=== PATIENT | male | born 1990 | race Caucasian/White ===

== ENCOUNTER → 2020-05-05 | Outpatient (CLI) | payer OTHER ==
--- NOTE | 2020-05-05 15:04 | MR ---
EXAMINATION TYPE: MR knee RT wo con DATE OF EXAM: 05/05/2020 COMPARISON: Outside right knee x-ray 2 weeks ago HISTORY: Right knee pain per order. In her knee pain with locking and swelling for 10 years per patie nt. History of prior surgery. TECHNIQUE: Multiplanar, multisequence images of the knee is performed without IV contrast. FINDINGS: MEDIAL MENISCUS: Minimal medial meniscus remains present at the level of the posterior horn sagittal images 7 through 9 with increased signal and peripheral irregularity consistent with surgical resecti on and/or tearing. LATERAL MENISCUS: Anterior horn is intact without tear. Central body and posterior horn truncated wit h abnormal signal consistent with tear. Lateral extrusion noted on images. CRUCIATE LIGAMENTS: The posterior cruciate ligament is intact. Anterior cruciate ligament is complete ly torn with double PCL sign noted. COLLATERAL LIGAMENTS: The medial collateral ligament and lateral collateral ligament complex are inta ct and unremarkable. EXTENSOR MECHANISM: Visualized quadriceps and patellar tendons are intact. EFFUSION: Small suprapatellar joint effusion. POPLITEAL CYST: Small popliteal/perez cyst with loose bodies sagittal image 9. TRICOMPARTMENT SPACES: Moderate to severe narrowing and spurring medial and lateral tibiofemoral com partments . Patellofemoral compartment shows mild narrowing and spurring. CARTILAGE: Severe full-thickness cartilaginous loss medial tibiofemoral compartment. BONE MARROW SIGNAL: Subchondral cystic change posterior aspect of the tibial plateau. OTHER: Corresponding to x-ray there are multiple loose bodies present, one is seen anterior to the me dial aspect of the distal femur in Hoffa's fat pad additional smaller loose bodies are seen along the posterior aspect of the distal femur. IMPRESSION: 1. Prior resection of majority of medial meniscus, tearing through the remnant posterior horn is note d. 2. Complete ACL tear. 3. Severe medial tibiofemoral compartment degenerative change. 4. Full-thickness tear through the posterior horn and central body of the lateral meniscus. 5. Small popliteal cyst with loose bodies. 6. Scattered ossific loose bodies in the knee joint.
== END | disposition home or self-care (01) ==
LOC: RADMRIMAIN 13:39
PROVIDERS: ATTEND Orthopaedic Surgery
DX: S83.511A Sprain of anterior cruciate ligament of right knee, initial encounter (principal); S83.281A Other tear of lateral meniscus, current injury, right knee, initial encounter; S83.241A Other tear of medial meniscus, current injury, right knee, initial encounter; M17.11 Unilateral primary osteoarthritis, right knee; M71.21 Synovial cyst of popliteal space [Baker], right knee; Z98.890 Other specified postprocedural states

== ENCOUNTER → 2020-05-27 | Outpatient (CLI) | payer OTHER ==
[2020-05-27 14:47] LABS: Basophils % (A) 0 %; Eosinophils # (A) 0.1 k/uL (0-0.7); Eosinophils % (A) 1 %; HCT 47.2 % (39.0-53.0); HGB 15.5 gm/dL (13.0-17.5); Lymphocytes # (A) 1.4 k/uL (1.0-4.8); Lymphocytes % (A) 18 %; MCH 29.3 pg (25.0-35.0); MCHC 32.9 g/dL (31.0-37.0); MCV 89.2 fL (80.0-100.0); Monocytes # (A) 0.5 k/uL (0-1.0); Monocytes % (A) 6 %; Neutrophils # (A) 5.4 k/uL (1.3-7.7); Neutrophils % (A) 70 %; Platelet Count 214 k/uL (150-450); RBC 5.29 m/uL (4.30-5.90); RDW 12.2 % (11.5-15.5); WBC 7.8 k/uL (3.8-10.6)
[2020-05-27 14:50] LABS: Potassium 5.5 mmol/L (3.5-5.1)
== END | disposition home or self-care (01) ==
LOC: LABPAT 13:35
PROVIDERS: ATTEND Orthopaedic Surgery
DX: Z01.818 Encounter for other preprocedural examination (principal); M23.91 Unspecified internal derangement of right knee
CPT/HCPCS: 36415; 80051; 85025

== ENCOUNTER 2020-06-10 09:00 | Day surgery (SDC) | payer OTHER ==
[2020-06-09 10:49] VITALS: BMI 28.1
--- NOTE | 2020-06-09 19:37 | HP ---
HISTORY AND PHYSICAL DATE OF SURGERY: 06/10/2020 Dwight Light is a 29-year-old patient seen with progressive right knee pain. We discussed options. He elected to proceed with right knee arthroscopy. Consent was obtained. PAST MEDICAL HISTORY: Noncontributory. PAST SURGICAL HISTORY: Right knee arthroscopy with ACL reconstruction, wrist surgery. DAILY MEDICATIONS: None. ALLERGIES: NONE REPORTED. SOCIAL HISTORY: He smokes cigarettes daily. PHYSICAL EVALUATION OF RIGHT KNEE: Range of motion is zero to 130. Mild effusion. Tenderness, medial joint line. Positive medial Surinder's. Plus 1 to 2 Andrei, soft endpoint. Collateral ligaments stable. Hip rotation without pain. Distal neurovascular exam intact. RADIOGRAPHS: Right knee radiographs revealed osteoarthritic changes. Right knee MRI revealed medial meniscal tear, ACL tear and osteoarthritic changes. IMPRESSION: 1. Internal derangement of right knee with medial meniscal tear. 2. Right knee osteoarthritis. 3. Right knee ACL deficient knee. 4. Tobacco use. PLAN: Right knee arthroscopy with partial meniscectomy, partial synovectomy and debridement. MMODL / IJN: [id number] /
[~2020-06-10 09:00] MED LIST: DEXAMETHASONE SOD PHOSPHATE 10 MG/ML 1 ML VIAL IV ONE; KETOROLAC 15 MG/ML 1 ML VIAL IVP SCH; LACTATED RINGERS 1,000 ML IV SCH; LIDOCAINE 1% (10MG/ML) FOR IV START INTRADERMA PRN; ONDANSETRON 4 MG/2 ML VIAL IVP PRN
[2020-06-10 09:22] VITALS: TEMP 97.5
[2020-06-10] MEDS ORDERED: fentaNYL (PF) 50 MCG/ML 2 ML AMP ONE (10:44)
[2020-06-10] MEDS ORDERED: MIDAZOLAM 2 MG/2 ML VIAL ONE (10:44)
[2020-06-10] MEDS ORDERED: KETOROLAC 15 MG/ML 1 ML VIAL ONE (10:44)
[2020-06-10] MEDS ORDERED: PROPOFOL 10 MG/ML 20 ML VIAL IV ONE (10:44)
[2020-06-10] MEDS ORDERED: BUPIVACAINE (PF) 0.25% 30 ML VIAL INTRAARTIC ONE (10:44)
--- NOTE | 2020-06-10 11:54 | P.OP ---
Date of Procedure: 06/10/20 Preoperative Diagnosis: Internal derangement right knee Postoperative Diagnosis: 1. Tear medial meniscus right knee 2. Grade 2 chondromalacia medial femoral condyle right knee 3. Reactive synovitis medial, lateral and suprapatellar compartments right knee 4. Loose body right knee 5. ACL tear right knee Procedure(s) Performed: 1. Arthroscopic partial medial meniscectomy right knee 2. Arthroscopic chondroplasty medial femoral condyle right knee 3. Arthroscopic partial synovectomy medial, lateral and suprapatellar compartments right knee 4. Arthroscopic removal loose body right knee 5. Arthroscopic debridement remnant ACL right knee Anesthesia: MARITZAA, local Surgeon: Shakir Singletary Estimated Blood Loss (ml): 9 Pathology: none sent Condition: stable Disposition: PACU Indications for Procedure: 29-year-old patient seen with progressive right knee pain. After having treatment options discussed, he elected to proceed with arthroscopy. Operative Findings: See description of procedure Description of Procedure: Patient was taken to the operative suite. Patient underwent a general anesthetic by the department of anesthesia. Patient was given preoperative antibiotics. The right lower extremity was placed in a well-padded arthroscopic leg gonzalez. The right leg was prepped and draped in the normal sterile orthopedic fashion. A lateral parapatellar and suprapatellar incision was made. Trochars were inserted. Arthroscopy was initiated. Suprapatellar pouch revealed diffuse thick reactive synovitis. The patellofemoral joint appeared to articulate congruently. There was no chondromalacia present. There was a loose body noted adjacent to the lateral aspect of the patella which appeared to be a reasonable size bony loose body The scope was guided into the medial gutter. No plica was identified. The scope was then guided into the medial compartment. A medial parapatellar incision was made. Trocar inserted followed by probe. I guided the scope back into the super patellar compartment. I enlarged my medial portal site. A loose body forceps was introduced and I was able to retrieve that large bony loose body without difficulty. The scope was guided back into the medial compartment. There was a complex tear involving the posterior and anterior horns the medial meniscus with evidence of previous partial meniscectomy. There was thick reactive some-itis anteriorly. There were grade 2 chondromalacia changes the medial femoral condyle with some osteochondral flap tears present. I performed a partial medial meniscectomy getting on a stable tissue. I performed a chondroplasty of the medial femoral condyle. I performed a partial synovectomy decompressing the thick reactive some-itis. The residual meniscus was stable. The residual osteochondral surface was stable. There was good decompression of the synovitis. Scope and probe were then guided into the intercondylar notch. There was only a remnant ACL was evidence of near-complete tear. I debrided the remnant ACL. The PCL was probed and found to be stable.. The scope and probe were then guided into lateral compartment. There was no significant chondromalacia present. The meniscus was stable. There was thick reactive some-itis anteriorly. Motorize shaver was introduced and a partial synovectomy was performed. There was good decompression synovitis. The scope was in guided back into the suprapatellar compartment. I introduced a motorized shaver into the super patellar compartment. I debrided some piecemeal fragments of meniscus I encountered. I performed a partial synovectomy decompressing reactive synovitis. The shaver was removed. There was good decompression of the synovitis. Instruments were now removed from the joint. The joint was infiltrated with .25% Marcaine. The portal sites were approximated with nylon suture. Sterile dressings were applied. The patient was placed into a AIMEE hose. No tourniquet was utilized. The patient was awakened, transferred to a bed and taken to recovery stable satisfactory condition.
[2020-06-10] MEDS: HYDROmorphone 0.5 MG/0.5 ML SYRINGE IVP PRN ×2 (12:00→12:10)
[2020-06-10 12:42] VITALS: RESP 18
[2020-06-10 13:02] VITALS: BP 104/49; PULSE 68
== END 2020-06-10 13:24 | disposition home or self-care (01) ==
LOC: OR 09:00
PROVIDERS: ATTEND Orthopaedic Surgery
DX: M23.221 Derangement of posterior horn of medial meniscus due to old tear or injury, right knee (principal); M23.211 Derangement of anterior horn of medial meniscus due to old tear or injury, right knee; S83.511A Sprain of anterior cruciate ligament of right knee, initial encounter; M17.11 Unilateral primary osteoarthritis, right knee; M65.861 Other synovitis and tenosynovitis, right lower leg; M23.41 Loose body in knee, right knee; F17.210 Nicotine dependence, cigarettes, uncomplicated; Z98.890 Other specified postprocedural states; X58.XXXA Exposure to other specified factors, initial encounter
CPT/HCPCS: 29881; 84132; J2250; J1100; J0690; J2405; J3010; J1885; J2704; J1170

== ENCOUNTER 2021-09-07 05:09 | Emergency (ER) | payer OTHER ==
[2021-09-07 05:20] VITALS: TEMP 98.1
[2021-09-07 05:38] VITALS: RESP 18
--- NOTE | 2021-09-07 06:24 | ED ---
Back Pain HPI - General Chief Complaint: Back Pain/Injury Stated Complaint: Back Injury Time Seen by Provider: 09/07/21 05:58 Source: patient, RN notes reviewed Limitations: no limitations - History of Present Illness Initial Comments: 31-year-old male presents emergency Department with chief complaint low back pain. Patient states that he was trying to loosen the lug nuts on his truck. Patient states that it but loose quickly twisted his back. Patient went of left lower back pain denies any bowel, bladder incontinence or retention of saddle anesthesias. Patient states that the pain is localized nonradiating denies any lower leg symptoms including paresthesias or weakness patient states she's not been taking medication is better in certain positions worse after prolonged standing or sitting. - Related Data Previous Rx's Medication Instructions Recorded HYDROcodone/APAP 5-325MG [[place] 1 tab PO Q6HR PRN 7 Days #28 tab 06/10/20 5-325] Ibuprofen [Motrin] 600 mg PO Q8HR PRN #30 tab 09/07/21 Allergies Allergy/AdvReac Type Severity Reaction Status Date / Time No Known Allergies Allergy Verified 09/07/21 05:15 Review of Systems ROS Statement: Those systems with pertinent positive or pertinent negative responses have been documented in the HPI. ROS Other: All systems not noted in ROS Statement are negative. Past Medical History Past Surgical History: Orthopedic Surgery Additional Past Surgical History / Comment(s): right knee ACL attempted repair. Right wrist surgical procedure for a fracture. Past Psychological History: No Psychological Hx Reported Smoking Status: Vaper Past Alcohol Use History: Occasional Past Drug Use History: Marijuana General Exam General appearance: alert, in no apparent distress Head exam: Present: atraumatic, normocephalic, normal inspection Neck exam: Present: normal inspection. Absent: tenderness, meningismus, lymphadenopathy Respiratory exam: Present: normal lung sounds bilaterally. Absent: respiratory distress, wheezes, rales, rhonchi, stridor Cardiovascular Exam: Present: regular rate, normal rhythm, normal heart sounds. Absent: systolic murmur, diastolic murmur, rubs, gallop, clicks GI/Abdominal exam: Present: soft, normal bowel sounds. Absent: distended, tenderness, guarding, rebound, rigid Extremities exam: Present: normal inspection, full ROM, normal capillary refill. Absent: tenderness, pedal edema, joint swelling, calf tenderness Back exam: Present: normal inspection, full ROM, tenderness (Left lower lumbar), paraspinal tenderness. Absent: vertebral tenderness Neurological exam: Present: reflexes normal. Absent: motor sensory deficit Course Vital Signs 09/07/21 09/07/21 05:16 05:30 Temperature 98.1 F Pulse Rate 84 72 Respiratory 15 18 Rate Blood Pressure 138/97 140/89 O2 Sat by Pulse 98 100 Oximetry Medical Decision Making - Medical Decision Making Patient has a lumbar strain. Patient was offered medications patient declines. Patient states that he just wanted this documented. Patient will be discharged in stable condition return parameters discussed. Disposition Clinical Impression: Strain of lumbar region Disposition: HOME SELF-CARE Condition: Stable Instructions (If sedation given, give patient instructions): Acute Low Back Pain (ED) Additional Instructions: Please return to the Emergency Department if symptoms worsen or any other concerns. Prescriptions: Ibuprofen [Motrin] 600 mg PO Q8HR PRN #30 tab PRN Reason: Pain Is patient prescribed a controlled substance at d/c from ED?: No Referrals: Diandra Oleary MD [Primary Care Provider] - 1-2 days Time of Disposition: 06:24
[2021-09-07 06:50] VITALS: BP 141/89; PULSE 71
== END 2021-09-07 06:50 | disposition home or self-care (01) ==
LOC: SUPCPDRO 05:09 → EC 05:09
DX: S39.012A Strain of muscle, fascia and tendon of lower back, initial encounter (principal); F17.290 Nicotine dependence, other tobacco product, uncomplicated; F12.90 Cannabis use, unspecified, uncomplicated; Z72.89 Other problems related to lifestyle
CPT/HCPCS: 99283